=== PATIENT | male | born 1965 | race Caucasian/White ===

== ENCOUNTER 2017-04-08 17:12 | Emergency (ER) | payer OTHER ==
[~2017-04-08] VITALS: Ht 165.1 cm; Wt 93.5 kg
[2017-04-08 17:20] VITALS: Ht 165.1 cm; Wt 93.5 kg
[2017-04-08] MEDS ORDERED: HYDROCODONE/APAP (5/325) TAB PO ONE (18:30)
[2017-04-08] MEDS ORDERED: IBUPROFEN 600 MG TAB PO ONE (18:30)
--- NOTE | 2017-04-08 18:57 | RADRPT ---
PROCEDURE: X-ray left ankle CLINICAL INDICATION: Trauma to the left ankle. Reference marker is directed towards the lateral m alleolus. TECHNIQUE: 3 views left ankle COMPARISON: None FINDINGS: No acute fracture or dislocation. Plantar and posterior dorsal calcaneal enthesophytes. Soft tissu es unremarkable. IMPRESSION: No acute fracture. RPTAT: [facility] Chin Varela Physician Date Time Electronically viewed and signed by Chin Varela Physician on 04/08/2017 18:57 RS/
--- NOTE | 2017-04-08 19:05 | RADRPT ---
AMENDMENT: 04/08/2017 7:18:09 PM Rudy Varela MD ADDENDUM: FINDINGS: Likely nonfused apophysis at the base of the fifth metatarsal, without features of acute fracture. PROCEDURE: X-ray left foot CLINICAL INDICATION: Left foot trauma TECHNIQUE: 3 views left foot COMPARISON: None FINDINGS: Plantar and posterior dorsal calcaneal enthesophytes. No acute fracture or dislocation. Soft tissu es unremarkable. IMPRESSION: No acute fracture. RPTAT: [facility] Physician Steven Date Time Electronically viewed and signed by Chin Varela Physician on 04/08/2017 19:18 RS/
[2017-04-08] MEDS ORDERED: HYDR-906 PO (19:24)
[2017-04-08] MEDS ORDERED: IBUP-1542 PO (19:24)
--- NOTE | 2017-04-08 19:30 | ERD ---
ER Documentation Chief Complaint Date/Time DATE: 04/08/17 TIME: 19:28 Chief Complaint 8/10 left ankle pain x 5 hours fell when getting out of car HPI This 51-year-old male claims of left ankle pain after getting in his car today. The pain is on the lateral aspect of left foot. Denies is scheduled. Weakness or bleeding or lacerations. ROS All systems reviewed and are negative except as per history of present illness. Medications Home Meds Active Scripts Hydrocodone/Acetaminophen ([place] 5-325 Tablet) 1 Each Tablet, 1 TAB PO Q6H Y for PAIN, #14 TAB Prov:JESSEE GUO MD 04/08/17 Ibuprofen* (Motrin*) 600 Mg Tab, 600 MG PO Q6, #20 TAB Prov:JESSEE GUO MD 04/08/17 PMhx/Soc Medical and Surgical Hx: pt denies Medical Hx, pt denies Surgical Hx History of Surgery: No Anesthesia Reaction: No Hx Neurological Disorder: No Hx Respiratory Disorders: No Hx Cardiac Disorders: No Hx Psychiatric Problems: No Hx Miscellaneous Medical Probl: No Hx Alcohol Use: No Hx Substance Use: No Hx Tobacco Use: Yes Smoking Status: Current every day smoker Physical Exam Vitals Vital Signs Date Time Temp Pulse Resp B/P Pulse Ox O2 Delivery O2 Flow Rate FiO2 04/08/17 17:20 94 20 161/84 96 Physical Exam Const: [] Alert, not ill-appearing. Head: Atraumatic Eyes: Normal Conjunctiva ENT: Normal External Ears, Nose and Mouth. Neck: Full range of motion..~ No meningismus. Resp: Clear to auscultation bilaterally Cardio: Regular rate and rhythm, no murmurs Abd: Soft, non tender, non distended. Normal bowel sounds Skin: No petechiae or rashes Back: No midline or flank tenderness Ext: No cyanosis, or edema. There is some tenderness and slight swelling on the left foot in the area of the base of the fifth metatarsal. There is no significant ankle tenderness or deformities. There is no restricted range of motion weakness or evidence of ischemia or deficits. Neur: Awake and alert Psych: Normal Mood and Affect Results 24 hrs Current Medications Medications (Trade) Dose Ordered Sig/Gerald Route PRN Reason Start Time Stop Time Status Last Admin Dose Admin Acetaminophen/ Hydrocodone Bitart ([place] (5/325)) 1 tab ONCE ONCE PO 04/08/17 18:30 04/08/17 18:31 DC 04/08/17 18:20 Ibuprofen (Motrin) 600 mg ONCE ONCE PO 04/08/17 18:30 04/08/17 18:31 DC 04/08/17 18:20 Procedures/MDM X-ray Foot 3V Interpreted by me: Bones: No fracture Joints: No dislocation Foreign body: None. Impression-normal left foot x-ray. There is a area of lucency likely persistent apophysis cording to the radiologist. X-ray left Ankle 3V Interpreted by me: Bones: [No fracture] Joints: No dislocation. Impression-normal left ankle x-ray Patient was given ibuprofen and [place] for pain. Patient says a left lower extremity walker boot and was nerve asked intact to the boot. He is also given crutches. Patient presents with findings of a left foot sprain. There is an area of lucency likely not acute seen on x-ray and follow-up is recommended. Recommending repeat x-ray 10 days. In the meantime he should wear his boot and follow-up with primary doctor orthopedist. Return sooner for fevers, redness, new symptoms. There is no evidence of infection, sepsis, dislocation, additional complications related to his foot injury today. Departure Diagnosis: Primary Impression: Foot sprain Encounter type: initial encounter Laterality: left Qualified Code: S93.602A - Foot sprain, left, initial encounter Condition: Stable Patient Instructions: Sprain Foot Referrals: KATIE SEAY MD,IN [facility] Additional Instructions: X-ray appears normal according the radiologist but recheck x-ray in 10 days for persistent pain. They need authorization from primary doctor for orthopedist visit. JESSEE GUO MD Apr 08, 2017 19:30
[2017-04-08 19:48] VITALS: BP 160/97; PULSE 78; RESP 18; TEMP 97.6
== END 2017-04-08 19:47 | disposition home or self-care (01) ==
LOC: FTE 17:12
DX: S93.602A Unspecified sprain of left foot, initial encounter (principal); F17.210 Nicotine dependence, cigarettes, uncomplicated; W18.39XA Other fall on same level, initial encounter; Y92.9 Unspecified place or not applicable
CPT/HCPCS: 73610; 73630; Z7502; Z7610

== ENCOUNTER 2017-10-31 21:43 | Inpatient (IN) | END 2017-11-04 16:55 | disposition home or self-care (01) | DRG 246 ==

== ENCOUNTER 2017-11-14 15:59 | Inpatient (IN) | END 2017-11-16 12:05 | disposition home or self-care (01) | DRG 247 ==

== ENCOUNTER 2017-12-20 19:35 | Observation (INO) | END 2017-12-21 13:50 | disposition home or self-care (01) ==

== ENCOUNTER 2019-01-04 18:22 | Observation (INO) | payer OTHER ==
[~2019-01-04] VITALS: Ht 170.2 cm; Wt 103.9 kg
[2019-01-04] VITALS (14 sets, daily range): BP systolic 99–167; BP diastolic 78–122; PULSE 61–75; RESP 14–22; Ht 170.2 cm; Wt 103.9 kg
[~2019-01-04 18:22] MED LIST: ASPI-817 PO; ASPIRIN 81 MG TAB ONE; ATOR-2 PO; CARV6.2579 PO; DOCU-144 PO; HEPARIN 5,000 UNIT/1 ML VIAL ONE; ISOS20TA19 PO; LISI-471 PO; PRAS10TA6 PO
[2019-01-04] MEDS ORDERED: ASPIRIN 81 MG TAB PO STA (18:36)
[2019-01-04] MEDS ORDERED: NITROGLYCERIN 2% 1 GM OINT PKT TD STA (18:36)
[2019-01-04] MEDS ORDERED: HEPARIN 1000 UNITS/ML 10 ML INJ IV STA (18:48)
[2019-01-04] MEDS ORDERED: ASPIRIN 81 MG TAB PO ONE (19:00)
[2019-01-04] MEDS ORDERED: NITROGLYCERIN (SL) 0.4 MG TAB SL PRN (19:00)
[2019-01-04] MEDS ORDERED: LIDOCAINE 1% (MDV) 20 ML INJ ONE ×2 (19:08→19:17)
[2019-01-04] MEDS ORDERED: IOHEXOL 350MG/ML 50 ML BTL ONE (19:09)
[2019-01-04] MEDS ORDERED: MIDAZOLAM 1 MG/ML 2 ML INJ ONE (19:09)
[2019-01-04] MEDS ORDERED: FENTAnyl 50 MCG/ML VIAL ONE (19:09)
[2019-01-04] MEDS ORDERED: NITROGLYCERIN (IC) 100 MCG/ML INJ ONE ×2 (19:09→19:17)
[2019-01-04] MEDS ORDERED: IODIXANOL LOCM 100 ML BTL ONE ×2 (19:09→19:17)
[2019-01-04] MEDS ORDERED: HEPARIN 1000 UNITS/ML 10 ML INJ ONE (19:17)
[2019-01-04] MEDS ORDERED: SOD CHLORIDE 0.9% 1,000 ML ONE (19:17)
[2019-01-04] MEDS ORDERED: VERAPAMIL 5 MG INJ ONE (19:17)
--- NOTE | 2019-01-04 19:38 | ERD ---
ER Documentation Chief Complaint Chief Complaint CP x 2-3 days 6 stents HPI Patient is a 53-year-old male with coronary disease and hypertension who presents with chest pain. He said chest pain for the past 2-3 days. It is left-sided chest pain. He saw his primary doctor Dr. Jane today. The doctor sent him to the emergency department for further workup. He has had no treatment as of yet. ROS All systems reviewed and are negative except as per history of present illness. Medications Home Meds Active Scripts Atorvastatin* (Atorvastatin*) 80 Mg Tablet, 80 MG PO HS for 30 Days, TAB 3 Refills Prov:JUNIOR VANESSA 11/16/17 Aspirin* (Aspirin* EC) 81 Mg Tablet.dr, 81 MG PO DAILY for 30 Days, 3 Refills Prov:JUNIOR VANESSA 11/04/17 Isosorbide Dinitrate* (Isosorbide Dinitrate*) 20 Mg Tablet, 20 MG PO TID for 30 Days, TAB 3 Refills Prov:JUNIOR VANESSA 11/04/17 Carvedilol* (Carvedilol*) 6.25 Mg Tablet, 6.25 MG PO BID for 30 Days, TAB 3 Refills Prov:JUNIOR VANESSA 11/04/17 Prasugrel Hydrochloride* (Effient*) 10 Mg Tablet, 10 MG PO DAILY for 30 Days, TAB 11 Refills Prov:JUNIOR VANESSA 11/04/17 Reported Medications Docusate Sodium* (Colace*) 100 Mg Capsule, 100 MG PO BID, #60 CAP 12/20/17 Lisinopril* (Lisinopril*) 20 Mg Tablet, 20 MG PO DAILY, #30 TAB 12/20/17 Allergies Allergies: Coded Allergies: No Known Allergy (Unverified , 12/20/17) PMhx/Soc History of Surgery: Yes Anesthesia Reaction: No Hx Neurological Disorder: No Hx Respiratory Disorders: No Hx Cardiac Disorders: Yes Hx Psychiatric Problems: No Hx Miscellaneous Medical Probl: No Hx Alcohol Use: Yes Hx Substance Use: No Hx Tobacco Use: Yes Smoking Status: Current every day smoker FmHx Family History: coronary disease Physical Exam Vitals Vital Signs Date Temp Pulse Resp B/P (MAP) Pulse Ox O2 O2 Flow FiO2 Time Delivery Rate 01/04/19 71 18 149/101 100 Room Air 18:58 (117) 01/04/19 98.9 77 20 170/86 97 18:37 (114) Physical Exam Const: Mild distress Head: Atraumatic Eyes: Normal Conjunctiva ENT: Normal External Ears, Nose and Mouth. Neck: Full range of motion. No meningismus. Resp: Clear to auscultation bilaterally Cardio: Regular rate and rhythm, no murmurs Abd: Soft, non tender, non distended. Normal bowel sounds Skin: No petechiae or rashes Back: No midline or flank tenderness Ext: No cyanosis, or edema Neur: Awake and alert Psych: Normal Mood and Affect Result Diagram: 01/04/19184601/04/191846 Results 24 hrs Laboratory Tests Test 01/04/19 18:47 White Blood Count 9.1 10^3/ul Red Blood Count 4.97 10^6/ul Hemoglobin 12.2 g/dl Hematocrit 40.1 % Mean Corpuscular Volume 80.7 fl Mean Corpuscular Hemoglobin 24.5 pg Mean Corpuscular Hemoglobin Concent 30.4 g/dl Red Cell Distribution Width 25.7 % Platelet Count 273 10^3/UL Mean Platelet Volume fl Immature Granulocytes % 0.300 % Neutrophils % 62.9 % Lymphocytes % 23.0 % Monocytes % 9.5 % Eosinophils % 3.6 % Basophils % 0.7 % Nucleated Red Blood Cells % 0.0 /100WBC Immature Granulocytes # 0.030 10^3/ul Neutrophils # 5.7 10^3/ul Lymphocytes # 2.1 10^3/ul Monocytes # 0.9 10^3/ul Eosinophils # 0.3 10^3/ul Basophils # 0.1 10^3/ul Nucleated Red Blood Cells # 0.0 10^3/ul Sodium Level 143 mmol/L Potassium Level 4.2 mmol/L Chloride Level 105 mmol/L Carbon Dioxide Level 27 mmol/L Anion Gap 11 Blood Urea Nitrogen 18 mg/dl Creatinine 0.80 mg/dl Est Glomerular Filtrat Rate mL/min > 60 mL/min Glucose Level 132 mg/dl Calcium Level 9.8 mg/dl Troponin I < 0.012 ng/ml Current Medications Medications Dose Sig/Gerald Start Time Status Last (Trade) Ordered Route PRN Stop Time Admin Dose Reason Admin Aspirin 162 mg ONCE STAT 01/04/19 DC 01/04/19 (Aspirin) PO 18:36 01/04/19 18:52 18:38 1 inch ONCE STAT 01/04/19 DC 01/04/19 Nitroglycerin TD 18:36 01/04/19 18:55 18:38 (Nitroglyceri n 2% Oint) 1 tab Q5M UP TO 3 01/04/19 Nitroglycerin DOSES PRN 19:00 SL .CHEST (Nitroglyceri PAIN n (Sl Tab) 0.4 Mg) Heparin 5,000 unit ONCE STAT 01/04/19 DC 01/04/19 Sodium IV 18:48 01/04/19 18:53 (Porcine) 18:49 (Heparin (1000 Units/ml)) Aspirin 162 mg ONCE ONCE 01/04/19 DC 01/04/19 (Aspirin) PO 19:00 01/04/19 18:52 19:01 Lidocaine 20 ml STK-MED 01/04/19 DC (Xylocaine ONCE .ROUTE 19:08 01/04/19 1% (Mdv) 20 19:09 ml) Heparin 1,500 ml @ STK-MED 01/04/19 DC Sodium/ ud ONCE .ROUTE 19:01/04/19 Sodium 19:09 Chloride Iohexol 50 ml STK-MED 01/04/19 DC (Omnipaque ONCE .ROUTE 19:01/04/19 350mg/ ml) 19:10 Iodixanol 100 ml STK-MED 01/04/19 DC (Visipaque ONCE .ROUTE 19:09 01/04/19 Locm) 19:10 Midazolam 2 mg STK-MED 01/04/19 DC HCl ONCE .ROUTE 19:01/04/19 (Versed) 19:10 Fentanyl 100 mcg STK-MED 01/04/19 DC (Sublimaze) ONCE .ROUTE 19:09 01/04/19 19:10 1,000 mcg STK-MED 01/04/19 DC Nitroglycerin ONCE .ROUTE 19:01/04/19 19:10 (Nitroglyceri n (Intracoronar y)) Heparin 10,000 unit STK-MED 01/04/19 DC Sodium ONCE .ROUTE 19:01/04/19 (Porcine) 19:18 (Heparin (1000 Units/ml)) Lidocaine 20 ml STK-MED 01/04/19 DC (Xylocaine ONCE .ROUTE 19:17 19 1% (Mdv) 20 19:18 ml) Iodixanol 100 ml STK-MED 01/04/19 DC (Visipaque ONCE .ROUTE 19:01/04/19 Locm) 19:18 Heparin 1,500 ml @ STK-MED 01/04/19 DC Sodium/ ud ONCE .ROUTE 19:17 01/04/19 Sodium 19:18 Chloride Verapamil 5 mg STK-MED 01/04/19 DC HCl ONCE .ROUTE 19:01/04/19 (Verapamil) 19:18 1,000 mcg STK-MED 01/04/19 DC Nitroglycerin ONCE .ROUTE 19:01/04/19 19:18 (Nitroglyceri n (Intracoronar y)) Sodium 1,000 ml @ STK-MED 01/04/19 DC Chloride ud ONCE .ROUTE 19:01/04/19 19:18 Procedures/MDM EKG #1 read by me: Rate/Rhythm: Regular rate and rhythm at a normal rate Intervals: Normal Impression: ST elevations with hyperacute T waves in leads V2 and V3, mild ST depression in III and aVF EKG #1 read by me: Rate/Rhythm: Regular rate and rhythm at a normal rate Intervals: Normal Impression: ST elevations with hyperacute T waves in leads V2 and V3, mild ST depression in III and aVF Chest x-ray negative per radiology. Patient is a 53-year-old male with multiple cardiac risk factors and 6 stents who presents with chest pain. Code STEMI was called based on the EKG from triage. Timeline is as follows: ode STEMI called 183ardiology called and I spoke with Dr. Peña 1842Dr. Casey was at the bedside 190awaiting cardiac slab tripper arrival 1908patient wheeled out of the room to the cardiac Crusher Tender Patient was given aspirin, nitroglycerin, and heparin IV. The patient will be admitted to the care of Dr. Zhang to the intensive care unit as the patient has regal insurance. Critical Care: Time: 35 minutes excluding all billable procedures. Treatments/Evaluations: Close monitoring and treatment of unstable vital signs, cardiorespiratory, and neurologic status, while maintaining tight balance of fluid, respiratory, and cardiac interventions. Departure Diagnosis: Primary Impression: STEMI (ST elevation myocardial infarction) Involved coronary artery: unspecified coronary artery Qualified Codes: I21.3 - ST elevation (STEMI) myocardial infarction of unspecified site Condition: Critical ADORE ADORNO MD Jan 04, 2019 19:38
--- NOTE | 2019-01-04 20:07 | OPR ---
Date/Time of Note Date/Time of Note DATE: 01/04/19 TIME: 20:00 Operative Report Procedure Date: Jan 04, 2019 Preoperative Diagnosis Abnormal electrocardiogram/ST elevation Postoperative Diagnosis Mild to moderate coronary artery disease Operation/Procedure Performed Left heart catheterization Right and left coronary angiogram Interpretation and supervision of right and left coronary angiogram Left ventricular gram Left ventricular pressure measurements Conscious sedation Right radial artery approach Surgeon see signature line [employer] Specialist Rehab Nurse staff Anesthesia Type: MAC Estimated Blood Loss: minimal Transfusion none Specimen None Grafts/Implants none Complications none Pt Condition Post Procedure: stable Procedure Description Findings Hemodynamics Aortic pressure 152/83 LV pressure 153, EDP 26 Coronary findings Left main is large caliber vessel with no significant disease Circumflex is a medium caliber vessel with a proximal to mid 30% stenosis, patent mid stent, distal 20% diffuse stenosis LAD is a medium caliber vessel, there is a proximal to mid 30% stenosis, patent mid stent, distal 30% stenosis RCA is a medium caliber vessel and dominant with a patent mid stent with 40-50% in-stent restenosis, distal 30% diffuse stenosis Left ventricular gram with ejection fraction 60% Description of procedure Patient with chest pain off and on over the past 2 days, improved with nitroglycerin. Saw primary care physician and given ECG abnormalities, sent to the emergency room. Initial ECG with upsloping ST elevations in anterior leads with peaked T waves which improved on subsequent ECGs after nitroglycerin and aspirin. Patient brought to the Rehab Nurse after informed consent patient prepped and draped as per protocol. Right radial artery access was obtained and a 5/6 Danish sheath was placed in the right radial artery. 6 Danish JR4 diagnostic catheter was used to do an angiogram of the right system. We next used a 6 Danish XB LAD 3.5 guide catheter to engage the left main and angiogram was performed. On comparison of angiogram to November 2017, no significant changes with mild progression of disease in the RCA and circumflex. No evidence of a thrombotic lesion. We next used a 6 Danish pigtail into the left ventricle. LV pressure measurements were obtained as well as left ventriculogram was perfo rmed. By the end of the procedure, patient was chest pain-free. All catheters and wires removed. There is no immediate complications Recommendation Aggressive medical management. Cuco Peña DO Jan 04, 2019 20:07
[2019-01-04] MEDS ORDERED: SOD CHLORIDE 0.9% 1,000 ML IV SCH (20:13)
--- NOTE | 2019-01-04 20:13 | CONS ---
Assessment/Plan Assessment/Plan Hospital Course (Demo Recall) Chest pain with abnormal ECG CAD with history of multiple PCI's most recently November 2017 Hypertension Dyslipidemia Obesity Tobacco use -Patient with anterior ECG abnormalities and chest pain. A code STEMI was called and patient brought to the Automobile Detail[facility]. -Angiogram demonstrated no significant change compared to November 2017 with patent major vessels. -Continue aggressive medical management, antiplatelet therapy, statin therapy, beta-maxwell, check echocardiogram. Consultation Date/Type/Reason Admit Date/Time Type of Consult Cardiology Reason for Consultation Chest pain and abnormal ECG Date/Time of Note DATE: 01/04/19 TIME: 20:08 Hx of Present Illness This is a 53-year-old male with past medical history of CAD with multiple PCI's most recently November 2017, hypertension, dyslipidemia, obesity who presents with on and off chest pain over the past 2 days. Chest pain is improved with nitroglycerin. Occasionally pressure-like occasionally sharp but today more so pressure-like. Patient saw his primary care physician and given abnormal ECG sent to the emergency room. A code STEMI was called given anterior ST segment abnormalities. 12 point review of systems was performed with all pertinent positives and negatives mentioned above and all else is negative Past Medical History Medical History: coronary artery disease, high cholesterol, hypertension Home Meds Active Scripts Atorvastatin* (Atorvastatin*) 80 Mg Tablet, 80 MG PO HS for 30 Days, TAB 3 Refills Prov:JUNIOR VANESSA 11/16/17 Aspirin* (Aspirin* EC) 81 Mg Tablet.dr, 81 MG PO DAILY for 30 Days, 3 Refills Prov:JUNIOR VANESSA 11/04/17 Isosorbide Dinitrate* (Isosorbide Dinitrate*) 20 Mg Tablet, 20 MG PO TID for 30 Days, TAB 3 Refills Prov:JUNIOR VANESSA 11/04/17 Carvedilol* (Carvedilol*) 6.25 Mg Tablet, 6.25 MG PO BID for 30 Days, TAB 3 Refills Prov:JUNIOR VANESSA 11/04/17 Prasugrel Hydrochloride* (Effient*) 10 Mg Tablet, 10 MG PO DAILY for 30 Days, TAB 11 Refills Prov:JUNIOR VANESSA 11/04/17 Reported Medications Docusate Sodium* (Colace*) 100 Mg Capsule, 100 MG PO BID, #60 CAP 12/20/17 Lisinopril* (Lisinopril*) 20 Mg Tablet, 20 MG PO DAILY, #30 TAB 12/20/17 Medications Current Medications Nitroglycerin (Nitroglycerin (Sl Tab) 0.4 Mg) 1 tab Q5M UP TO 3 DOSES PRN SL .CHEST PAIN; Start 01/04/19 at 19:00 Allergies: Coded Allergies: No Known Allergy (Unverified , 12/20/17) Past Surgical History Past Surgical Hx: angioplasty, other Social History Smoking Status: Former smoker Exam/Review of Systems Vital Signs Vitals Vital Signs Date Temp Pulse Resp B/P (MAP) Pulse Ox O2 O2 Flow FiO2 Time Delivery Rate 01/04/19 71 18 149/101 100 Room Air 18:58 (117) 01/04/19 98.9 18:37 Exam Constitutional: alert, oriented (No apparent distress) Head: normocephalic Respiratory: clear to auscultation, normal air movement Cardiovascular: regular rate and rhythm (S1-S2 heard) Gastrointestinal: soft, non-tender, bowel sounds Extremities: other (No significant edema) Labs Result Diagram: 01/04/197 01/04/197 Results 24hrs Laboratory Tests Test 01/04/19 18:47 White Blood Count 9.1 # Red Blood Count 4.97 # Hemoglobin 12.2 L Hematocrit 40.1 #L Mean Corpuscular Volume 80.7 L Mean Corpuscular Hemoglobin 24.5 L Mean Corpuscular Hemoglobin Concent 30.4 L Red Cell Distribution Width 25.7 #H Platelet Count 273 Mean Platelet Volume Immature Granulocytes % 0.300 Neutrophils % 62.9 Lymphocytes % 23.0 Monocytes % 9.5 Eosinophils % 3.6 Basophils % 0.7 Nucleated Red Blood Cells % 0.0 Immature Granulocytes # 0.030 Neutrophils # 5.7 Lymphocytes # 2.1 Monocytes # 0.9 Eosinophils # 0.3 Basophils # 0.1 Nucleated Red Blood Cells # 0.0 Sodium Level 143 Potassium Level 4.2 Chloride Level 105 Carbon Dioxide Level 27 Anion Gap 11 Blood Urea Nitrogen 18 Creatinine 0.80 Est Glomerular Filtrat Rate mL/min > 60 Glucose Level 132 Calcium Level 9.8 Troponin I < 0.012 Imaging Imaging ECG performed at 1833 sinus rhythm, anterolateral upsloping ST segments with peaked T waves, ECG performed at 1641 with sinus rhythm, improvement in anterior ST segments Medications Medications Current Medications Nitroglycerin (Nitroglycerin (Sl Tab) 0.4 Mg) 1 tab Q5M UP TO 3 DOSES PRN SL .CHEST PAIN; Start 01/04/19 at 19:00 Cuco Peña DO Jan 04, 2019 20:13
[2019-01-04] MEDS ORDERED: ZOLPIDEM 5 MG TAB PO PRN (20:30)
[2019-01-04] MEDS ORDERED: AL HYDROX/MG HYDROX/SIMETH 30 ML CUP PO PRN (20:30)
[2019-01-04] MEDS ORDERED: ONDANSETRON 4 MG INJ IV PRN (20:30)
[2019-01-04] MEDS ORDERED: ACETAMINOPHEN 325 MG TAB PO PRN (20:30)
[2019-01-04] MEDS ORDERED: ATORVASTATIN 40 MG TAB PO SCH (21:00)
[2019-01-04] MEDS: ISOSORBIDE DINITRATE 5 MG TAB PO SCH (22:48)
[2019-01-05] VITALS (30 sets, daily range): BP systolic 118–174; BP diastolic 58–137; PULSE 62–79; RESP 10–26
[2019-01-05] MEDS: ISOSORBIDE DINITRATE 5 MG TAB PO SCH (08:29)
[2019-01-05] MEDS ORDERED: ASPIRIN (EC) 81 MG TAB PO SCH (09:00)
[2019-01-05] MEDS ORDERED: CLOPIDOGREL 75 MG TAB PO SCH (09:00)
--- NOTE | 2019-01-05 09:33 | HP ---
Date/Time of Note Date/Time of Note DATE: 01/05/19 TIME: 09:20 Assessment/Plan VTE Prophylaxis Risk score (from Ns)>0 risk: 2 SCD applied (from [facility]): Yes Pharmacological prophylaxis: NA/contraindicated Pharm contraindication: low risk/ambulating Lines/Catheters IV Catheter Type (from [facility]): Saline Lock Assessment/Plan Assessment/Plan 53-year-old male: 1. STEMI, left-sided chest pain on admission, known severe coronary artery disease, status post PCI with 3 stents to RCA on 11/01 and second PCI with 2 stents to circumflex on 11/03. Patient presented in the ER with chest pain and reported STEMI Status post PCI last night, all vessels are open, no stent placed. Appreciate recommendations from cardiology, Dr. Peña, aggressive medical management.. Continue current cardiac medications including antiplatelets Aspirin and Plavix. 2D echocardiogram done and results pending. 2. Hypertension: Continue home medications. 3. Hyperlipidemia: Continue statin therapy. 4. Tobacco use: Patient has quit last year. Prophylaxis: Pepcid for GI prophylaxis and SCDs for DVT prophylaxis Disposition: Hopefully discharge home later today, with Cardiology and PCP follow up. Result Diagram: 01/05/19 0535 01/05/19 0535 Results 24hrs Laboratory Tests Test 01/04/19 18:47 01/05/19 00:15 01/05/19 05:35 01/05/19 05:36 White Blood Count 9.1 # 6.5 # Red Blood Count 4.97 # 4.69 L Hemoglobin 12.2 L 11.3 L Hematocrit 40.1 #L 38.2 L Mean Corpuscular Volume 80.7 L 81.4 L Mean Corpuscular 24.5 L 24.1 L Hemoglobin Mean Corpuscular 30.4 L 29.6 L Hemoglobin Concent Red Cell Distribution 25.7 #H 25.7 H Width Platelet Count 273 253 Mean Platelet Volume Immature Granulocytes % 0.300 0.300 Neutrophils % 62.9 61.0 Lymphocytes % 23.0 23.3 Monocytes % 9.5 9.4 Eosinophils % 3.6 5.2 Basophils % 0.7 0.8 Nucleated Red Blood 0.0 0.0 Cells % Immature Granulocytes # 0.030 0.020 Neutrophils # 5.7 4.0 Lymphocytes # 2.1 1.5 Monocytes # 0.9 0.6 Eosinophils # 0.3 0.3 Basophils # 0.1 0.1 Nucleated Red Blood 0.0 0.0 Cells # Sodium Level 143 143 Potassium Level 4.2 4.4 Chloride Level 105 112 H Carbon Dioxide Level 27 24 Anion Gap 11 7 Blood Urea Nitrogen 18 15 Creatinine 0.80 0.77 Est Glomerular Filtrat > 60 > 60 Rate mL/min Glucose Level 132 107 Calcium Level 9.8 9.0 Troponin I < 0.012 < 0.012 0.038 Creatine Kinase 67 60 Creatine Kinase Index 0.5 0.7 Creatinine Kinase MB 0.35 0.43 (Mass) Hemoglobin A1c 5.1 Triglycerides Level 312 H Cholesterol Level 200 LDL Cholesterol, 103 Calculated HDL Cholesterol 35 Cholesterol/HDL Ratio 5.7 HPI/ROS Admit Date/Time Admit Date/Time Hx of Present Illness 53-year-old male with severe coronary artery disease, status post multiple PCI's in the past, hyperlipidemia, hypertension, tobacco use although patient reports that he has quit who presented yesterday to the emergency department with complaints of chest pain, he was found to have abnormal EKG at his PCP office and also in the emergency department triggering a code STEMI. Patient was taken to the [facility]. Patient reports that he has been having chest discomfort, left-sided substernal over the past 2 days, he went to his schedule appointment with his primary care physician, EKG was done and was found to be abnormal and the patient was subsequently redirected to the emergency department. In the emergency department the EKG showed ST elevation RI and STEMI code was triggered. Patient was taken to the [facility], he had PCI last night, all the vessels are open, he did not require any stent placement, appreciate assistance from cardiology, re commendation is for aggressive medical management. Patient remained stable overnight, no arrhythmias, blood pressure stable, no chest pain. Likely to discharge home today. ROS Constitutional: no complaints Eyes: no complaints ENT: no complaints Respiratory: no complaints Cardiovascular: chest pain, lightheadedness Gastrointestinal: no complaints Genitourinary: no complaints Musculoskeletal: no complaints Skin: no complaints Neurologic: no complaints Endocrine: no complaints Psychological: no complaints Immunologic: no complaints PMH/Family/Social Past Medical History 1. CAD,post PCI of the RCA obtuse marginal and his LAD stenting October 2017 and previous multiple PCIs 2. Hypertension 3. Hyperlipidemia 4. Tobacco Use Medications Current Medications Miscellaneous Information (* Miscellaneous Pharmacy Order) Hold all Metformin ... ONCE XX ; Start 01/04/19 at 20:30; Stop 01/06/19 at 20:29 Aspirin (Halfprin) 81 mg DAILY PO Last administered on 01/05/19 08:28; Admin Dose 81 MG; Start 01/05/19 at 09:00 Atorvastatin Calcium (Lipitor) 40 mg DAILY@21 PO Last administered on 01/04/19at 21:30; Admin Dose 40 MG; Start 01/04/19 at 21:00 Acetaminophen (Tylenol Tab) 650 mg Q4H PRN PO PAIN; Start 01/04/19 at 20:30 Zolpidem Tartrate (Ambien) 5 mg HS MAY REPEAT X 1 PRN PO INSOMNIA; Start 01/04/19 at 20:30 Al Hydrox/Mg Hydrox/Simethicone (Mag-Al Plus) 30 ml Q4H PRN PO GASTROINTESTINAL UPSET; Start 01/04/19 at 20:30 Ondansetron HCl (Zofran Inj) 4 mg Q4H PRN IV NAUSEA AND/OR VOMITING; Start 01/04/19 at 20:30 Carvedilol (Coreg) 6.25 mg BID PO Last administered on 01/05/19 08:28; Admin Dose 6.25 MG; Start 01/04/19 at 21:00 Isosorbide Dinitrate (Isordil) 5 mg TID PO Last administered on 01/05/19 08:29; Admin Dose 5 MG; Start 01/04/19 at 21:30 Clopidogrel Bisulfate (plaVIX) 75 mg DAILY PO Last administered on 01/05/19 08:28; Admin Dose 75 MG; Start 01/05/19 at 09:00 Coded Allergies: No Known Allergy (Unverified , 12/20/17) Past Surgical History Past Surgical Hx: angioplasty, other Family History Significant Family History: heart disease Social History Smoking Status: Former smoker Exam/Review of Systems Vital Signs Vitals Vital Signs Date Temp Pulse Resp B/P (MAP) Pulse Ox O2 O2 Flow FiO2 Time Delivery Rate 01/05/19 77 18 174/137 96 Room Air 08:30 (149) 01/05/19 98.3 04:00 01/04/19 2.0 22:00 Intake and Output 401/04/19 01/05/19 1515:00 23:00 07:00 IntakeIntake Total 315 ml 150 ml OutputOutput Total 600 ml BalanceBalance 315 ml -450 ml Exam Constitutional: alert, oriented, well developed Respiratory: clear to auscultation, normal air movement Cardiovascular: regular rate and rhythm, nl pulses Gastrointestinal: soft, non-tender Musculoskeletal: nl extremities to inspection Extremities: normal pulses Neurological: WAFER FABRICATION OPERATOR II-XII intact, nl mental status, nl speech, nl strength JUNIOR VANESSA Jan 05, 2019 09:31
[2019-01-05] MEDS ORDERED: LISINOPRIL 20 MG TAB PO SCH (11:30)
--- NOTE | 2019-01-05 11:51 | RADRPT ---
Echocardiogram Report Patient Name: MERLE LÓPEZPatient ID: [id number] : [id number] (53y 6m)Study Date: 01/05/2019 8:41:27 AM Gender: MAccession #: [id number] Tech: [facility] Location: [address] Ref.Physician: CUOC PEÑA Height(Cm): BSA: Weight(Kg): Quality: AdequateAccount #: Procedures: Echocardiographic Report: Transthoracic echocardiogram with complete 2D, M-Mode, and doppler examination. Indications: Chest Pain, and Coronary Artery Disease. Measurements: 2D/M Mode Doppler Measurement Value Normal Range Measurement Value Normal Range LVIDd 2D 4.7 [ 4.2 - 5.8 ] cm AV Peak Long 1.5 [ 100.0 - 170.0 ] cm/sec LVIDs 2D 3.4 [ 2.5 - 4.0 ] cm AV Peak PG 9.0 [ 2.0 - 9.0 ] mmHg LVPWd 2D 1.1 [ 0.6 - 1.0 ] cm AI Peak PG 45.0 mmHg IVSd 2D 1.1 [ 0.6 - 1.0 ] cm AI Peak Long 3.4 cm/sec AoR Diam 2D 3.2 [ 2.6 - 3.4 ] cm AI PHT 774.0 msec EDV 2D 101.0 [ 62.0 - 150.0 ] ml LVOT Peak Long 1.0 [ 70.0 - 110.0 ] cm/sec ESV 2D 47.8 [ 21.0 - 61.0 ] ml LVOT Peak PG 4.0 [ 2.0 - 6.0 ] mmHg EF 2D 52.7 [ 52.0 - 72.0 ] percent MV E Peak Long 0.8 [ 60.0 - 130.0 ] cm/sec LA Dimen 2D 3.7 [ 3.0 - 4.0 ] cm MV A Peak Long 0.9 [ 100.0 - 120.0 ] cm/sec MV E/A 0.9 [ 0.8 - 1.5 ] ratio MV Decel Time 271 [ 104 - 258 ] msec Lat E` Long 0.1 [ 10.0 - 15.0 ] cm/sec Lateral E/E` 11.0 [ 1.0 - 2.0 ] ratio MV E/A 0.9 [ 0.8 - 1.5 ] ratio TR Peak Long 1.5 [ 100.0 - 280.0 ] cm/sec TR Peak PG 9.0 mmHg RVSP 12.0 [ 10.0 - 36.0 ] mmHg Findings: Left Ventricle: Normal left ventricular systolic function. Normal left ventricular cavity size. Normal left ventricular wall thickness. Ejection fraction is visually estimated at 60 %. Tissue Doppler/Mitral Doppler indices are consistent with impaired relaxation (Stage I diastolic dysfunction). Right Ventricle: Normal right ventricular size. Normal right ventricular systolic function. Left Atrium: The left atrium is normal in size. Right Atrium: The right atrium is normal in size. Mitral Valve: Mild mitral leaflet calcification. Mild mitral annular calcification. Mild mitral valve regurgitation. Aortic Valve: No hemodynamically significant aortic stenosis by doppler. Aortic cusps appear mildly calcified. Mild aortic valve regurgitation. Tricuspid Valve: Normal appearance of the tricuspid valve. Estimated peak PA systolic pressure 12 mmHg. There is trace tricuspid regurgitation. Pericardium: Normal pericardium with no significant pericardial effusion. Aorta: Normal aortic root. IVC: Normal size and normal respiratory collapse consistent with normal right atrial pressure. Conclusions: Normal left ventricular systolic function. Normal left ventricular cavity size. Normal left ventricular wall thickness. Ejection fraction is visually estimated at 60 %. Tissue Doppler/Mitral Doppler indices are consistent with impaired relaxation (Stage I diastolic dysfunction). Normal right ventricular size. Normal right ventricular systolic function. The left atrium is normal in size. The right atrium is normal in size. Mild mitral valve regurgitation. No hemodynamically significant aortic stenosis by doppler. Mild aortic valve regurgitation. Normal pericardium with no significant pericardial effusion. Electronically Signed By: Cuco Peña 2019-01-05 11:51:00 PDT
--- NOTE | 2019-01-05 11:54 | CONS ---
Assessment/Plan Assessment/Plan Hospital Course (Demo Recall) Chest pain with abnormal ECG Preserved ejection fraction Mild mitral and aortic valve regurgitation CAD with history of multiple PCI's most recently November 2017 Hypertension Dyslipidemia Obesity Tobacco use -Patient with anterior ECG abnormalities and chest pain. A code STEMI was called and patient brought to the [facility]. -Angiogram demonstrated no significant change compared to November 2017 with patent major vessels. -Continue aggressive medical management, antiplatelet therapy, statin therapy, beta-maxwell, adjust nitroglycerin to Imdur for compliance -Weight loss -DC planning Consultation Date/Type/Reason Admit Date/Time Jan 04, 2019 at 20:13 Initial Consult Date Type of Consult Cardiology Date/Time of Note DATE: 01/05/19 TIME: 11:52 24 HR Interval Summary Free Text/Dictation Denies further chest pain, shortness of breath or palpitations Exam/Review of Systems Vital Signs Vitals Vital Signs Date Temp Pulse Resp B/P (MAP) Pulse Ox O2 O2 Flow FiO2 Time Delivery Rate 01/05/19 68 17 134/98 96 Room Air 11:00 (110) 01/05/19 98.0 08:00 01/04/19 2.0 22:00 Intake and Output 01/04/19 01/04/19 01/05/19 1515:00 23:00 07:00 IntakeIntake Total 315 ml 150 ml OutputOutput Total 600 ml BalanceBalance 315 ml -450 ml Exam Constitutional: alert, oriented (No apparent distress) Head: normocephalic Respiratory: clear to auscultation, normal air movement Cardiovascular: regular rate and rhythm (S1-S2 heard) Gastrointestinal: soft, non-tender, bowel sounds Extremities: other (Right wrist is soft, +2 radial artery pulse) Labs Result Diagram: 01/05/19 0535 01/05/19 0535 Results 24hrs Laboratory Tests Test 01/04/19 18:47 01/05/19 00:15 01/05/19 05:35 01/05/19 05:36 White Blood Count 9.1 # 6.5 # Red Blood Count 4.97 # 4.69 L Hemoglobin 12.2 L 11.3 L Hematocrit 40.1 #L 38.2 L Mean Corpuscular Volume 80.7 L 81.4 L Mean Corpuscular 24.5 L 24.1 L Hemoglobin Mean Corpuscular 30.4 L 29.6 L Hemoglobin Concent Red Cell Distribution 25.7 #H 25.7 H Width Platelet Count 273 253 Mean Platelet Volume Immature Granulocytes % 0.300 0.300 Neutrophils % 62.9 61.0 Lymphocytes % 23.0 23.3 Monocytes % 9.5 9.4 Eosinophils % 3.6 5.2 Basophils % 0.7 0.8 Nucleated Red Blood 0.0 0.0 Cells % Immature Granulocytes # 0.030 0.020 Neutrophils # 5.7 4.0 Lymphocytes # 2.1 1.5 Monocytes # 0.9 0.6 Eosinophils # 0.3 0.3 Basophils # 0.1 0.1 Nucleated Red Blood 0.0 0.0 Cells # Sodium Level 143 143 Potassium Level 4.2 4.4 Chloride Level 105 112 H Carbon Dioxide Level 27 24 Anion Gap 11 7 Blood Urea Nitrogen 18 15 Creatinine 0.80 0.77 Est Glomerular Filtrat > 60 > 60 Rate mL/min Glucose Level 132 107 Calcium Level 9.8 9.0 Troponin I < 0.012 < 0.012 0.038 Creatine Kinase 67 60 Creatine Kinase Index 0.5 0.7 Creatinine Kinase MB 0.35 0.43 (Mass) Hemoglobin A1c 5.1 Triglycerides Level 312 H Cholesterol Level 200 LDL Cholesterol, 103 Calculated HDL Cholesterol 35 Cholesterol/HDL Ratio 5.7 Medications Medications Current Medications Miscellaneous Information (* Miscellaneous Pharmacy Order) Hold all Metformin ... ONCE XX ; Start 01/04/19 at 20:30; Stop 01/06/19 at 20:29 Aspirin (Halfprin) 81 mg DAILY PO Last administered on 01/05/19at 08:28; Admin Dose 81 MG; Start 01/05/19 at 09:00 Atorvastatin Calcium (Lipitor) 40 mg DAILY@21 PO Last administered on 01/04/19at 21:30; Admin Dose 40 MG; Start 01/04/19 at 21:00 Acetaminophen (Tylenol Tab) 650 mg Q4H PRN PO PAIN; Start 01/04/19 at 20:30 Zolpidem Tartrate (Ambien) 5 mg HS MAY REPEAT X 1 PRN PO INSOMNIA; Start 9 at 20:30 Al Hydrox/Mg Hydrox/Simethicone (Mag-Al Plus) 30 ml Q4H PRN PO GASTROINTESTINAL UPSET; Start 01/04/19 at 20:30 Ondansetron HCl (Zofran Inj) 4 mg Q4H PRN IV NAUSEA AND/OR VOMITING; Start at 20:30 Clopidogrel Bisulfate (plaVIX) 75 mg DAILY PO Last administered on 01/05/19at 08:28; Admin Dose 75 MG; Start 01/05/19 at 09:00 Carvedilol (Coreg) 6.25 mg BID PO ; Start 01/05/19 at 21:00 Isosorbide Mononitrate (Imdur) 30 mg DAILY PO ; Start 01/05/19 at 12:30 Lisinopril (Zestril) 20 mg DAILY PO Last administered on 01/05/19at 11:27; Admin Dose 20 MG; Start 01/05/19 at 11:30 Prasugrel (Effient) 10 mg DAILY PO ; Start 01/05/19 at 12:00 Cuco Peña DO Jan 05, 2019 11:54
[2019-01-05] MEDS ORDERED: PRASUGREL HYDROCHLORIDE 10 MG TABLET PO SCH (12:00)
[2019-01-05] MEDS ORDERED: ISOSORBIDE MONONITRATE(SR)30 MG TAB PO SCH (12:30)
[2019-01-05] MEDS ORDERED: ISOSORBIDE DINITRATE 5 MG TAB PO SCH (13:00)
--- NOTE | 2019-01-05 14:22 | PDOCDIS ---
Discharge Instructions CONDITION [id number] Patient Condition: [id number] Stable HOME CARE INSTRUCTIONS: [id number] Diet Instructions: [id number] Low Fat /Cholesterol ACTIVITY: [id number] Activity Restrictions: [id number] Slowly Increase Activity FOLLOW UP/APPOINTMENTS Follow-up Plan Follow-up with PCP within 1 week Follow-up with cardiology, within 1-2 weeks. JUNIOR VANESSA Jan 05, 2019 14:22
[2019-01-05] MEDS ORDERED: ISOS30TA67 PO (14:24)
--- NOTE | 2019-01-08 17:18 | DS ---
Date/Time of Note Date/Time of Note DATE: 01/08/19 TIME: 17:12 Discharge Summary Admission/Discharge Info Admit Date/Time Jan 04, 2019 at 20:13 Discharge Date/Time Jan 05, 2019 at 17:42 Discharge Diagnosis 1. STEMI, left-sided chest pain 2. Hypertension. 3. Hyperlipidemia. 4. Tobacco use. Patient Condition: Good Consults Cardiololgy, Dr Peña Procedures PTCA Hx of Present Illness 53-year-old male with severe coronary artery disease, status post multiple PCI's in the past, hyperlipidemia, hypertension, tobacco use although patient reports that he has quit who presented yesterday to the emergency department with complaints of chest pain, he was found to have abnormal EKG at his PCP office and also in the emergency department triggering a code STEMI. Patient was taken to the [facility]. Patient reports that he has been having chest discomfort, left-sided substernal over the past 2 days, he went to his schedule appointment with his primary care physician, EKG was done and was found to be abnormal and the patient was subsequently redirected to the emergency department. In the emergency department the EKG showed ST elevation OK and STEMI code was triggered. Patient was taken to the [facility], he had PCI last night, all the vessels are open, he did not require any stent placement, appreciate assistance from cardiology, recommendation is for aggressive medical management. Patient remained stable overnight, no arrhythmias, blood pressure stable, no chest pain. Likely to discharge home today. Hospital Course Patient was taken emergently to photo lab specialist as a code STEMI. Cardiac angiogram showed a patent LAD stent. Patient was monitored in the ICU overnight. No arrhythmias and no chest pain on Hospital day #2. He was discharged home in stable condition back on Effient and to continue Aspirin and with addition of Imdur to his regimen. He is to follow up with Cardiology and PCP within 1 to 2 weeks. Home Meds Active Scripts Isosorbide Mononitrate* (Isosorbide Mononitrate*) 30 Mg Tab.er.24h, 30 MG PO DAILY for 30 Days, #30 3 Refills Prov:JUNIOR VANESSA 01/05/19 Atorvastatin* (Atorvastatin*) 80 Mg Tablet, 80 MG PO HS for 30 Days, TAB 3 Refills Prov:JUNIOR VANESSA 11/16/17 Aspirin* (Aspirin* EC) 81 Mg Tablet.dr, 81 MG PO DAILY for 30 Days, 3 Refills Prov:JUNIOR VANESSA 11/04/17 Carvedilol* (Carvedilol*) 6.25 Mg Tablet, 6.25 MG PO BID for 30 Days, TAB 3 Refills Prov:JUNIOR VANESSA 11/04/17 Prasugrel Hydrochloride* (Effient*) 10 Mg Tablet, 10 MG PO DAILY for 30 Days, TAB 11 Refills Prov:JUNIOR VANESSA 11/04/17 Reported Medications Docusate Sodium* (Colace*) 100 Mg Capsule, 100 MG PO BID, #60 CAP 12/20/17 Lisinopril* (Lisinopril*) 20 Mg Tablet, 20 MG PO DAILY, #30 TAB 12/20/17 Discontinued Scripts Isosorbide Dinitrate* (Isosorbide Dinitrate*) 20 Mg Tablet, 20 MG PO TID for 30 Days, TAB 3 Refills Prov:JUNIOR VANESSA 11/04/17 Follow-up Plan Follow-up with PCP within 1 week Follow-up with cardiology, within 1-2 weeks. Primary Care Provider Not On Staff Doctor Time spent on discharge: > 30 minutes JUNIOR VANESSA Jan 08, 2019 17:18
--- NOTE | 2019-01-11 13:17 | RADRPT ---
Vent Rate: 66 bpm RR Interval: 0 msec FL Interval: 188 msec QRS Duration: 98 msec QT Interval: 404 msec QTC Interval: 423 msec P-R-T [place]: 58 - 50 - 42 degrees Normal sinus rhythm Cannot rule out Inferior infarct , age undetermined Anteroseptal infarct , possibly acute ACUTE [place] Abnormal ECG Electronically Signed By: Haroon Boogie
== END 2019-01-05 17:42 | disposition home or self-care (01) ==
LOC: E/R 18:22 → CCL 19:09 → SDS 19:50 → CCL 20:13 → ICU 20:13 → INTOOBSV 20:13
PROVIDERS: ADMIT Internal Medicine; ATTEND Internal Medicine
DX: I21.3 ST elevation (STEMI) myocardial infarction of unspecified site (principal); I10 Essential (primary) hypertension; E78.5 Hyperlipidemia, unspecified; Z79.82 Long term (current) use of aspirin; Z72.0 Tobacco use; E66.9 Obesity, unspecified; Z68.35 Body mass index [BMI] 35.0-35.9, adult
CPT/HCPCS: 36415; 71045; 80048; 80061; 82550; 82553; 83036; 84484; 85025; 87081; 93005; 93306; 93458; 96374; C1887; C9606; J1644; J2250; J3010; J7030; J7040; Q9967; Z7500; Z7502; Z7610; G0378